=== PATIENT | female | born 1985 | race Caucasian/White ===

== ENCOUNTER 2019-05-16 07:08 | Day surgery (SDC) | payer OTHER ==
[2019-05-16] VITALS (8 sets, daily range): BP systolic 110–120; BP diastolic 60–66; PULSE 53–64; TEMP 97.9–98.5
[~2019-05-16] VITALS: Ht 180.3 cm; Wt 102.3 kg
[~2019-05-16 07:08] MED LIST: CEPHALEXIN500 M1 PO; DARVOCET N 101 UDTAB PO; NO HOME MEDICATIONS; SEPTRA DS 8001 TAB PO
[2019-05-16] MEDS ORDERED: NORCO 325 MG-51 TAB PO ×2 (08:10→10:56)
[2019-05-16] MEDS ORDERED: MOTRIN 200200 MG/TAB PO ×2 (08:10→10:57)
--- NOTE | 2019-05-16 08:12 | NUR ---
TO RM AT 0727- CALL LIGHT IN REACH AT BEDSIDE.
[2019-05-16] MEDS ORDERED: CIPRO 500MG TA500 MG PO (08:18)
--- NOTE | 2019-05-16 11:27 | NUR ---
TO RM 7 PER CART FROM PACU. AWAKENS TO VERBAL STIMULI AND FALLS BACK TO SLEEP. INCISION SITES COVERED WITH READ SET AND ARE CLEAN DRY INTACT. PATIENT VERBALIZED BEING "SORE". DENIES NAUSEA. AT BEDSIDE.
--- NOTE | 2019-05-16 11:45 | NUR ---
AWAKENS EASILY AND FALLS BACK TO SLEEP.
--- NOTE | 2019-05-16 12:00 | NUR ---
AWAKENS EASILY AND THEN FALLS BACK TO SLEEP. SLEPPING QUIETLY
--- NOTE | 2019-05-16 12:15 | NUR ---
MORE AWAKE TALKING TO AND DRINKING WATER RECEIVED JELLO. PATIENT REQUESTED SOMETHING ELSE FOR PAIN THAN NORCO, DUE TO THE SEVERE ITCHING IT CAUSES DR LUDWIG CALLED AND HE STATED HE WILL BE BACK TO WRITE PRESCRIPTION OF SOMETHING DIFFERENT.
--- NOTE | 2019-05-16 12:45 | NUR ---
PATIENT C/O PAIN 05/09 AT CURRENT TIME DENIES NAUSEA RECEIVED JELLO
[2019-05-16] MEDS ORDERED: DILAUDID 2MG TAB2 MG PO (12:53)
--- NOTE | 2019-05-16 13:15 | NUR ---
DR LUDWIG CALLED PER PATIENT REQUEST FOR SOMETHING BESIDES NORCO. PATIENT STATED NORCO MAKES HER ITCH. RECEIVED PRESCRIPTION FOR DILAUDID. DICUSSED DILAUDID AND PATIENT'S ALLERGIES WITH PHARMACY AND THEN PASSED INFORMATION PASSED TO PATIENT.
--- NOTE | 2019-05-16 13:36 | NUR ---
WITH DISCUSSION AND PAIN 07/09 PATIENT RECEIVED MOTRIN 800MG. PATIENT VERBALIZED UNDERTANDING OF SIDE EFFECTS OF DILAUDID IF SHE WERE TO TAKE SOME AT HOME.
--- NOTE | 2019-05-16 14:00 | NUR ---
AMBULATED TO BATHROOM. VOIDED AND TOLERATED WELL. AMBULATED BACK TO BED.
--- NOTE | 2019-05-16 14:15 | NUR ---
RECEIVED DISCHARGE INSTRUCTIONS AND VERBALIZED UNDERSTANDING WITH AT BEDSIDE.
--- NOTE | 2019-05-16 14:35 | NUR ---
DISCHARGED PER WC BY NURSING STAFF TO PRIVATE CAR IN CARE OF
== END 2019-05-16 14:41 | disposition home or self-care (01) ==
LOC: SDCO 07:08
DX: K80.66 Calculus of gallbladder and bile duct with acute and chronic cholecystitis without obstruction (principal); Z88.5 Allergy status to narcotic agent; Z88.0 Allergy status to penicillin
CPT/HCPCS: C1757; J0690; J1100; J1200; J1610; J1885; J2405; J2704; J3010; J7120